=== PATIENT | male | born 1960 | race Hispanic/Latino ===

== ENCOUNTER 2019-08-15 21:34 | Emergency (ER) | payer OTHER | END 2019-08-15 22:30 | disposition home or self-care (01) | LOC: EDH 21:34 | DX: M79.604 Pain in right leg (principal); R03.0 Elevated blood-pressure reading, without diagnosis of hypertension; E11.9 Type 2 diabetes mellitus without complications; Z90.49 Acquired absence of other specified parts of digestive tract | CPT/HCPCS: 99281 ==